=== PATIENT | male | born 1980 | race Caucasian/White ===

== ENCOUNTER 2016-11-08 19:24 | Emergency (ER) | payer SELFPAY ==
[~2016-11-08] VITALS: Ht 172.7 cm; Wt 118.0 kg
[2016-11-08 21:45] VITALS: BP 146/92
== END 2016-11-08 21:54 | disposition home or self-care (01) ==
LOC: ER 19:24
DX: G47.00 Insomnia, unspecified (principal); F41.8 Other specified anxiety disorders
CPT/HCPCS: 99283; Z7610

== ENCOUNTER 2016-12-02 21:24 | Emergency (ER) | payer OTHER ==
[~2016-12-02] VITALS: Ht 180.3 cm; Wt 107.0 kg
[2016-12-02 23:24] LABS: CLARITY URINE CLEAR (CLEAR); COLOR URINE YELLOW (YELLOW); GLUCOSE URINE NEGATIVE (NEGATIVE); KETONES URINE TRACE (NEGATIVE); LEUKOCYTE ESTERASE URINE NEGATIVE (NEGATIVE); NITRITE URINE NEGATIVE (NEGATIVE); OCCULT BLOOD URINE NEGATIVE (NEGATIVE); PROTEIN URINE NEGATIVE (NEGATIVE)
[2016-12-02 23:30] LABS: CHLORIDE 106 mEq/L (98-107)
[2016-12-02 23:35] LABS: *AMPHETAMINES SCREEN URINE NEGATIVE (NEGATIVE); *BARBITURATES SCREEN URINE NEGATIVE (NEGATIVE); *BENZODIAZEPINES SCREEN URINE NEGATIVE (NEGATIVE); *COCAINE SCREEN URINE NEGATIVE (NEGATIVE); CANNABINOID URINE SCREEN NEGATIVE (NEGATIVE); METHADONE URINE SCREEN NEGATIVE (NEGATIVE); OPIATES URINE SCREEN NEGATIVE (NEGATIVE); PHENCYCLIDINE URINE SCREEN NEGATIVE (NEGATIVE)
[2016-12-02 23:39] LABS: CARBON DIOXIDE 24 mEq/L (21-32); ETHANOL BLOOD < 10 mg/dL
[2016-12-02 23:47] LABS: BASOPHILS % 0.6 % (0.0-2.0); LYMPHOCYTES % 21.4 % (20.0-50.0); MEAN CORPUSCULAR HEMOGLOBIN 31.1 pg (28.0-32.0); MEAN CORPUSCULAR VOLUME 89.4 fL (80.0-94.0); MEAN PLATELET VOLUME 8.8 fl (7.4-10.4); MONOCYTES % 10.7 % (2.0-8.0); NEUTROPHILS % 65.3 % (40.0-76.0); PLATELET 211 x1000/uL (130-400); RED BLOOD CELL COUNT 4.81 mill/uL (4.7-6.1); RED CELL DISTRIBUTION WIDTH 13.2 % (11.6-14.6)
[2016-12-03] MEDS ORDERED: ZIPRASIDONE MESYLATE 20MG/VIAL IM ONE (00:15)
[2016-12-03] MEDS ORDERED: LORAZEPAM 2MG/ML CPJ IM ONE (00:15)
[2016-12-03 14:23] VITALS: BP 117/73
== END 2016-12-03 14:42 ==
LOC: ER 21:40
DX: R45.851 Suicidal ideations (principal); F43.10 Post-traumatic stress disorder, unspecified; F41.9 Anxiety disorder, unspecified; F31.9 Bipolar disorder, unspecified; F12.10 Cannabis abuse, uncomplicated
CPT/HCPCS: 36415; 80053; 80305; 81003; 85025; 96372; 99285; G0482; J2060; J3486; Z7610